=== PATIENT | female | born 1945 | race Caucasian/White ===

== ENCOUNTER → 2016-12-30 | Outpatient (CLI) | payer OTHER ==
[~2016-12-30] MED LIST: BUDE10.2; BUPR150T73; BUPR300T4 PO; CA C1TAB59 PO; CHOL40002 PO; CITA20TA9 PO; CITA40TA12; CYAN50008 PO; FLUT9.9S NS; FORM12CA PO; GABAPENTIN PO; GLUC1TAB9 PO; HYDR-3241 PO; IBUP-1222; MELO-184 PO; ROFL500T; SODI1PAC12 NS; TIOT18CA; TIOT4MIS2 PO
== END | disposition home or self-care (01) ==
LOC: CFH 10:26
PROVIDERS: ATTEND Family Medicine
DX: Z12.31 Encounter for screening mammogram for malignant neoplasm of breast (principal)
CPT/HCPCS: G0202

== ENCOUNTER → 2017-03-12 | Outpatient (CLI) | payer OTHER ==
[~2017-03-12] MED LIST changes: +GABA300C10 PO; -MELO-184 PO; +MELO15TA24 PO; +OMEP40CA6 PO; +TIOT4MIS3 NS; +VIT1CAPS10 PO
== END | disposition home or self-care (01) ==
LOC: STAR 15:13
PROVIDERS: ATTEND Internal Medicine
DX: Z01.818 Encounter for other preprocedural examination (principal); R11.2 Nausea with vomiting, unspecified
CPT/HCPCS: 93005

== ENCOUNTER 2017-03-16 10:37 | Day surgery (SDC) | payer OTHER ==
[2017-03-12 15:45] VITALS: BP 120/75
[~2017-03-16] VITALS: Ht 152.4 cm; Wt 105.8 kg
[~2017-03-16 10:37] MED LIST changes: -OMEP40CA6 PO
[2017-03-16] MEDS ORDERED: LACTATED RINGERS 1,000 ML IV SCH (11:05)
[2017-03-16] MEDS ORDERED: OMEP40CA6 PO (11:15)
[2017-03-16] MEDS ORDERED: LIDOCAINE 1%, 2ML SQ PRN (11:30)
[2017-03-16] MEDS ORDERED: MIDAZOLAM 1 MG/ML, 2ML ONE (13:06)
[2017-03-16] MEDS ORDERED: FENTANYL PF 100 MCG/2ML ONE (13:07)
[2017-03-16] MEDS ORDERED: PROPOFOL 50 ML ONE (13:07)
[2017-03-16] MEDS ORDERED: MEPERIDINE/PF 25MG/0.5ML IVPush PRN (13:30)
[2017-03-16] MEDS ORDERED: ONDANSETRON 2MG/ML, 2ML IVPush PRN (13:30)
[2017-03-16] MEDS ORDERED: OXYcodone 5 MG/5 ML ORAL.SOL UDC PO PRN (13:30)
[2017-03-16] MEDS ORDERED: LABETALOL 5MG/ML, 20ML IV PRN (13:30)
[2017-03-16] MEDS ORDERED: PROMETHAZINE 25 MG/ML, 1ML IV PRN (13:30)
[2017-03-16] MEDS ORDERED: HYDROmorphone 1 MG/ML, 1ML IV PRN (13:30)
[2017-03-16] MEDS ORDERED: ACETAMINOPHEN 325 MG TABLET PO PRN (13:30)
[2017-03-16] MEDS ORDERED: hydrALAzine 20 MG/ML, 1ML IV PRN (13:30)
[2017-03-16] MEDS ORDERED: MIDAZOLAM 1 MG/ML, 2ML IV PRN (13:30)
[2017-03-16] MEDS ORDERED: FENTANYL PF 100 MCG/2ML IV PRN (13:30)
[2017-03-16] MEDS ORDERED: OXYcodone 5 MG/5 ML ORAL.SOL UDC ONE (13:53)
== END 2017-03-16 15:10 ==
LOC: OUT 10:37
PROVIDERS: ATTEND Internal Medicine
DX: K21.0 Gastro-esophageal reflux disease with esophagitis (principal); K44.9 Diaphragmatic hernia without obstruction or gangrene; K29.50 Unspecified chronic gastritis without bleeding; J44.9 Chronic obstructive pulmonary disease, unspecified; Z88.8 Allergy status to other drugs, medicaments and biological substances; E66.9 Obesity, unspecified; Z68.42 Body mass index [BMI] 45.0-49.9, adult
CPT/HCPCS: 43239; 88305; J2250; J2704; J3010

== ENCOUNTER → 2018-05-28 | Outpatient (CLI) | payer OTHER ==
[~2018-05-28] MED LIST changes: +OMEP40CA6 PO
== END | disposition home or self-care (01) ==
LOC: CFH 13:16
PROVIDERS: ATTEND Physician Assistant Medical
DX: M85.88 Other specified disorders of bone density and structure, other site (principal)
CPT/HCPCS: 77080